=== PATIENT | female | born 1965 | race American Indian/Alaskan Native ===

== ENCOUNTER 2016-11-11 11:01 | Emergency (ER) | payer BC ==
[2016-11-11] MEDS ORDERED: NACL 0.9% 1000 ML 1,000 ML IV ONE (12:42)
[2016-11-11 13:17] LABS: Basophils % (Auto) 0.7 % (0.0-1.8); Eosinophils % (Auto) 0.9 % (0.0-4.3); Hematocrit 40.7 % (30.3-42.9); Hemoglobin 13.4 gm/dl (10.1-14.3); Mean Corpuscular HGB Conc 33 % (30-34); Mean Corpuscular Hemoglobin 27 pg (28-32); Mean Corpuscular Volume 81 fl (79-97); Platelet Count 261 K/mm3 (140-440); Red Cell Distribution Width 15.6 % (13.2-15.2); White Blood Count 7.9 K/mm3 (4.5-11.0)
[2016-11-11 13:37] LABS: Alanine Aminotransferase 13 units/L (7-56); Albumin 3.8 g/dL (3.9-5); Albumin/Globulin Ratio 1.1 %; Alkaline Phosphatase 56 units/L (35-129); Anion Gap 18 mmol/L; BUN/Creatinine Ratio 12.85; Blood Urea Nitrogen 9 mg/dL (7-17); Calcium 9.1 mg/dL (8.4-10.2); Carbon Dioxide 21 mmol/L (22-30); Glucose 103 mg/dL (65-100); Potassium 4.6 mmol/L (3.6-5.0); Sodium 139 mmol/L (137-145); Total Protein 7.2 g/dL (6.3-8.2)
--- NOTE | 2016-11-11 13:59 | Cat Scan Report ---
CT HEAD WITHOUT CONTRAST: 11/11/16 11:01:00 CLINICAL: Headache and dizziness.. TECHNIQUE: 2.5-mm noncontrast scans. COMPARISON:None FINDINGS: The ventricles and sulci are normal for age. No abnormal density. No mass or mass effect. No hemorrhage, edema or extra-axial collection. The sinuses are clear. Normal orbits and soft tissues. The calvarium and skull base are intact. IMPRESSION: Normal head CT.
[2016-11-11] MEDS ORDERED: COMPAZINE IV ONE (14:00)
[2016-11-11 14:55] VITALS: BP 109/59
--- NOTE | 2016-11-11 23:02 | Emergency Department Report ---
Entered by DWIGHT SUE, acting as scribe for ADY CLEMENTE PA. ED Headache HPI - General Chief Complaint: Headache Stated Complaint: HEADACHE/DIZZINESS Time Seen by Provider: 11/11/16 12:35 Source: patient Exam Limitations: no limitations - History of Present Illness Initial Comments: 51 y/o female with a PMHx of HTN and diabetes mellitus presents to the ED c/o a constant frontal headache that began 2 days ago. Rates pain an 8/10 in severity , which she describes as aching and throbbing in quality. Aggravated with light exposure and movement, and alleviated with darkness. Associated dizziness and chills, but she denies cough, rhinorrhea, nausea, vomiting, vision changers, eye pain, and ear pain. Denies recent falls and head trauma/injury. Notes Hx of childhood migraines that were relieved with naps. Compliant with HTN and diabetes medication, which last dose was last night. Patient states she takes her medication only at night. Patient was driven to the ED by a family member. NKDA. Timing/Duration: other (2 days) Quality: severe (8/10) Head Injury Location: frontal Recent Head Trauma: no recent headache/trauma Modifying Factors: improves with: immobilization, other (darkness). worse with : exposure to light, movement Associated Symptoms: denies symptoms, fever/chills (denies fever), other ( dizziness). denies: confusion, fatigue, facial pain, loss of consciousness, nausea/vomiting, nasal congestion, nasal drainage, numbness in legs/feet, rash, sinus infection, stiff neck, vision changes, weakness Allergies/Adverse Reactions: Allergies No Known Allergies Allergy (Verified 11/11/16 12:44) Home Medications: Ambulatory Orders Butalb/Acetaminophen/Caffeine [Fioricet 50-300-40 mg CAP] 1 cap PO Q8HR PRN #20 cap 11/11/16 Prochlorperazine Maleate [Compazine] 5 mg PO Q8H #20 tablet 11/11/16 ED Review of Systems Comment: All other systems reviewed and negative Constitutional: chills. denies: diaphoresis, fever, weakness Eyes: denies: eye pain, eye discharge, vision change ENT: denies: ear pain, throat pain, dental pain, congestion Respiratory: denies: cough, shortness of breath, wheezing Cardiovascular: denies: chest pain, palpitations Endocrine: no symptoms reported Gastrointestinal: denies: abdominal pain, nausea, diarrhea Musculoskeletal: denies: back pain, joint swelling, arthralgia Skin: denies: rash, lesions Neurological: headache (frontal). denies: numbness, paresthesias ED Past Medical Hx - Past Medical History Hx Hypertension: Yes Hx Diabetes: Yes - Surgical History Additional Surgical History: breast reduction - Social History Smoking Status: Never Smoker Substance Use Type: Alcohol - Medications Home Medications: Home Medications Medication Instructions Recorded Confirmed Last Taken Type Butalb/Acetaminophen/Caffeine 1 cap PO Q8HR PRN #20 cap 11/11/16 Unknown Rx [Fioricet 50-300-40 mg CAP] Prochlorperazine Maleate 5 mg PO Q8H #20 tablet 11/11/16 Unknown Rx [Compazine] ED Physical Exam - General Limitations: No Limitations General appearance: alert, in no apparent distress - Head Head exam: Present: atraumatic, normocephalic, other (tenderness to frontal region of head) - Eye Eye exam: Present: normal appearance, PERRL, EOMI. Absent: scleral icterus, conjunctival injection, periorbital swelling, periorbital tenderness Pupils: Present: normal accommodation - Expanded Eye Exam Expanded Pupils: Regular, Round: Bilateral Sclera/Conjunctival: Normal Inspection: Bilateral - ENT ENT exam: Present: normal exam, mucous membranes moist - Neck Neck exam: Present: normal inspection, full ROM. Absent: tenderness, meningismus, lymphadenopathy - Respiratory Respiratory exam: Present: normal lung sounds bilaterally. Absent: respiratory distress, wheezes, rales, rhonchi, stridor - Cardiovascular Cardiovascular Exam: Present: regular rate, normal rhythm, normal heart sounds. Absent: systolic murmur, diastolic murmur, rubs, gallop - GI/Abdominal GI/Abdominal exam: Present: soft, normal bowel sounds. Absent: distended, tenderness, guarding, rebound, rigid - Extremities Exam Extremities exam: Present: normal inspection, full ROM - Back Exam Back exam: Present: normal inspection - Neurological Exam Neurological exam: Present: alert, oriented X3, normal gait - Expanded Neurological Exam Expanded Patient oriented to: Present: person, place Speech: Present: fluid speech Cranial nerves: EOM's Intact: Normal Cerebellar function: Finger to Nose: Normal Sensory exam: Upper Extremity Light Touch: Normal, Lower Extremity Light Touch: Normal Motor strength exam: RUE: 5, LUE: 5, RLE: 5, LLE: 5 Best Eye Response (P[place]): (4) open spontaneously Best Motor Response ([place]): (6) obeys commands Best Verbal Response ([place]): (5) oriented [place] Total: 15 - Psychiatric Psychiatric exam: Present: normal affect, normal mood - Skin Skin exam: Present: warm, dry, intact. Absent: rash ED Course Vital Signs 11/11/16 11/11/16 11:18 14:52 Temperature 97.7 F 98.2 F Pulse Rate 56 L 63 Respiratory 20 18 Rate Blood Pressure 156/102 Blood Pressure 109/59 [Left] O2 Sat by Pulse 98 98 Oximetry ED Medical Decision Making - Lab Data Result diagrams: 11/11/16 13:03 11/11/16 13:03 - Medical Decision Making 51-year-old female presents with a migraine headache ED course: Patient was given IV fluids and IV Compazine. CT scan head. CT of head normal + discussed findings with patient. Patient states she is feeling much better after admission of IV fluids and Compazine IV. Patient is not ill-appearing. Tenderness to frontal region of head present. Discussed home medication of Fioricet and Compazine to take as needed for migraine headache. Discuss with pt if persisted follow up with neurologist as referred. Patient has no neurological deficits. She is neurologically intact. Discussed the follow-up for a neurologist as referred. Discuss her symptoms return or worsen to return to the ED Patient states understanding and will follow instructions. Vital signs stable. Patient is in no acute distress. ED Disposition Clinical Impression: Migraine headache without aura Disposition: - TO HOME OR SELFCARE Is pt being admited?: No Does the pt Need Aspirin: No Condition: Stable Instructions: Migraine Headache (ED), Acute Headache (ED) Prescriptions: Butalb/Acetaminophen/Caffeine [Fioricet 50-300-40 mg CAP] 1 cap PO Q8HR PRN #20 cap PRN Reason: Headache Prochlorperazine Maleate [Compazine] 5 mg PO Q8H #20 tablet Referrals: PRIMARY CARE, [Primary Care Provider] - 3-5 Days JUNO HYDE MD [Staff Physician] - 3-5 Days [facility] [Outside] - 3-[address] [facility] [Outside] - 3-5 Days Forms: Accompanied Note, Work/School Release Form(ED) Time of Disposition: 14:55 This documentation as recorded by the VIKRAM fuller JASMINE,accurately reflects the service I personally performed and the decisions made by ,ADY CLEMENTE PA.
== END 2016-11-11 15:12 | disposition home or self-care (01) ==
LOC: ED 11:01
DX: G43.009 Migraine without aura, not intractable, without status migrainosus (principal); I10 Essential (primary) hypertension; E11.9 Type 2 diabetes mellitus without complications
CPT/HCPCS: 36415; 70450; 80053; 85025; 96361; 96374; 99284; J0780; J7030

== ENCOUNTER 2018-01-30 11:00 | Outpatient (CLI) | payer BC | END 2018-01-30 11:01 | disposition home or self-care (01) | LOC: SLR 11:00 | PROVIDERS: ATTEND Otolaryngology | DX: G47.33 Obstructive sleep apnea (adult) (pediatric) (principal); R40.0 Somnolence; R06.83 Snoring; I10 Essential (primary) hypertension | CPT/HCPCS: G0399 ==